=== PATIENT | male | born 1970 | race Caucasian/White ===

== ENCOUNTER 2021-04-27 16:04 | Emergency (ER) | payer OTHER, SELFPAY ==
--- NOTE | ~2021-04-27 | CT_ITS ---
EXAMINATION: CT SOFT TISSUE NECK WITHOUT CONTRAST CLINICAL INFORMATION: Facial swelling and trismus. COMPARISON: None TECHNIQUE: Helical imaging was performed in the axial plane with generation of coronal and sagittal reformatted images. No intravenous contrast given. This CT examination was performed using dose optimization techniques as appropriate, variously including the following: *Automated exposure control *Adjustment of mA and/or kV according to patient size (this includes techniques or standardized protocols for targeted exams where dose is matched to indication/reason for exam; i.e. extremities or head) *Use of iterative reconstruction technique DLP: 717 mGy-cm FINDINGS: Parotid glands, submandibular glands, and thyroid gland are normal. The nasopharynx, oral cavity, tongue base, and tonsillar pillars are grossly normal on this noncontrast examination. The parapharyngeal fat planes are preserved. The hypopharynx, epiglottis, and preepiglottic space are unremarkable. There appear to be minimal secretions within the right piriform sinus. Laryngeal structures normal. No fluid collections in the deep soft tissues. Normal sized lymph nodes of the suprahyoid and infrahyoid neck without evidence of lymphadenopathy by size criteria. Incidentally noted are a right posterior facial vein and external jugular vein that are asymmetrically larger than the the left-sided veins. There is soft tissue edema superficial and deep to the right platysma muscle without focal superficial fluid collection or soft tissue gas. Skull base is intact and the mastoid air cells and middle ear cavities are clear. The visualized intracranial structures are unremarkable. No extra-axial fluid collection. Mucosal thickening of frontal, ethmoid and maxillary sinuses without air-fluid levels. 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 The orbital herrera, globes and retrobulbar soft tissues are unremarkable. No evidence of facial bone injury. The mandible and temporomandibular joints are normal. There appear to be bilateral dental caries of maxillary premolar teeth with a focal periapical lucency of a root of a right first premolar tooth. There is focal loss of the buccal cortex in this area. However, no overlying soft tissue abscess in this area. No acute findings in the cervical spine. Cervical vertebra have normal height and alignment. The disc spaces are maintained. No prevertebral soft tissue swelling. Mild centrilobular emphysema and bronchial wall thickening of the visualized upper lobes. There are symmetric reticular opacities of scarring at lung apices. CT/CT soft tissue neck wo con IMPRESSION: * The soft tissue edema observed superficial and deep to the right platysma muscle could be a manifestation of cellulitis, if in the right clinical context. No evidence of abscess or soft tissue gas. * No lymphadenopathy or masses are detected within the neck on this noncontrast examination. * There are maxillary dental caries, and there is a periapical lucency around the root of a right maxillary premolar tooth. However, no evidence of a soft tissue abscess overlying the maxilla in this area.
[2021-04-27 16:37] VITALS: BP 112/61; PULSE 84; RESP 20; TEMP 36.8; O2SAT 95; BMI 23.7
--- NOTE | 2021-04-27 18:11 | ED_ITS ---
HPI - Dental/Oral General Chief complaint: Dental/Oral <SHAWNA Benton - Last Filed: 04/27/21 18:53> Stated complaint: oral infection <SHAWNA Benton Last Filed: 04/27/21 18:53> Time Seen by Provider: 04/27/21 18:11 <SHAWNA Benton Last Filed: 04/27/21 18:53> Source: patient <SHAWNA Benton Last Filed: 04/27/21 18:53> Mode of arrival: ambulatory <SHAWNA Benton Last Filed: 04/27/21 18:53> Limitations: no limitations <SHAWNA Benton Last Filed: 04/27/21 18:53> History of Present Illness HPI Narrative: This is a 50-year-old male who was sent over from [facility] in check if he with right extra oral sub mandibular facial swelling with pain and sensibility to digital palpation. At this time the patient is not able to provide a good history due to pain, and is not really talking. We are basing our history off of typed report from [facility] Dr. Cruz DDS. According to Dr. Cruz the swelling started 3 days ago. He thinks that the source of infection is tooth number 31. He also reports that the patient has very limited range of motion and significant intraoral swelling on the right side and underneath his time. Dr. Cruz is concerned due to the rapid spread of infection, and he is concerned of potential spread of infection and swelling of the floor of the mouth and compromise of the airway. He sent him to the emergency department for IV antibiotics, as he thinks oral antibiotics will not be sufficient. This patient was unable to provide a descriptive history, and Past Medical history. Upon questioning all he kept saying is he does not want a CT scan, ?it is not necessary , and he states he does not want to stay in the hospital. He also adds that he thought he would just be in and out of the hospital. He also states that he has not been able to eat or drink over the past 3 days due to pain. He is having trouble swallowing. <SHAWNA Benton Last Filed: 04/27/21 18:53> MD Complaint: tooth pain <SHAWNA Benton Last Filed: 04/27/21 18:53> Location: Tooth # (Tooth number 31 possible source of infection according to Dr. Cruz DDS [facility]) <SHAWNA Benton - Last Filed: 04/27/21 18:53> Teeth map: 1. Tooth 31. Possible source of infection according to DDS <SHAWNA Benton - Last Filed: 04/27/21 18:53> Onset (ago): day(s) (3) <SHAWNA Benton - Last Filed: 04/27/21 18:53> Duration: constant <SHAWNA Benton - Last Filed: 04/27/21 18:53> Severity: severe <SHAWNA Benton - Last Filed: 04/27/21 18:53> Severity scale (1-10): 10 <SHAWNA Benton - Last Filed: 04/27/21 18:53> Relieving factors: nothing <SHAWNA Benton - Last Filed: 04/27/21 18:53> Exacerbating factors: chewing, swallowing and other (Speaking) <SHAWNA Benton - Last Filed: 04/27/21 18:53> Context: history of dental caries and poor dental care <SHAWNA Benton - Last Filed: 04/27/21 18:53> Associated symptoms: other (Patient denies) <SHAWNA Benton - Last Filed: 04/27/21 18:53> Treatment prior to arrival: none <SHAWNA Benton - Last Filed: 04/27/21 18:53> Related Data Home medications: Previous Rx's Medication Instructions Recorded albuterol sulfate 90 mcg/actuation 1 inh INHALATION QID PRN 30 Days 05/22/20 aerosol inhaler #18 g salmeterol 50 mcg/dose blister 1 inh INHALATION Q12H 30 Days #28 03/28/21 powder for inhalation (Serevent ea Diskus) amoxicillin 875 mg-potassium 1 tab PO Q12H #20 tab 04/27/21 clavulanate 125 mg tablet (Augmentin) doxycycline hyclate 100 mg tablet 100 mg PO BID #20 tab 04/27/21 oxycodone 5 mg capsule 5 mg PO Q6H PRN #7 cap 04/27/21 <SHAWNA Benton - Last Filed: 04/27/21 18:53> Allergies/adverse reactions: Allergies Allergy/AdvReac Type Severity Reaction Status Date / Time chicken derived Allergy Severe SWELLING Unverified 04/27/20 15:31 [CHICKEN DERIVED] codeine [CODEINE] Allergy Unknown UNKNOWN Unverified 04/27/20 15:31 egg [EGG] Allergy Unknown UNKNOWN Unverified 04/27/20 15:31 Codeine Sulfate Allergy Unknown hives Uncoded 02/09/20 00:00 <SHAWNA Benton - Last Filed: 04/27/21 18:53> Review of Systems Review of Systems: Constitutional : No Fever, No Chills, No changes in PO intake, No difficulty speaking, no recent dental procedure, no heat or cold intolerance while eating, no recent face trauma, ENT/Mouth : + Dental pain, + swollen neck, + Jaw pain, + throat swelling, + swallowing difficulty, no change in voice, + facial swelling, no drooling, + trismus, no bleeding, no lacerations, + tongue swelling, +gum swelling, Eyes: No Eye Pain, No periorbital Swelling Cardiovascular : No Chest Pain, No SOB Respiratory : No Cough, No Sputum, No Wheezing, No Smoke Exposure, No Dyspnea Gastrointestinal : No Nausea, No Vomiting, No Diarrhea Genitourinary : No Dysuria Musculoskeletal : No Myalgias Skin : No rash, no facial swelling or redness, Neuro : No Weakness, No Numbness, No Headache <SHAWNA Benton - Last Filed: 04/27/21 18:53> Yes all other systems are reviewed and are negative <SHAWNA Benton - Last Filed: 04/27/21 18:53> [facility] Past Medical History Attestation statement: The following information was validated with the patient. <SHAWNA Benton - Last Filed: 04/27/21 18:53> Social History Social History: Social History Advance Directives: No Advance Directives Information Provided: No <SHAWNA Benton Last Filed: 04/27/21 18:53> Physical Exam Vital Signs: Vital Signs: Last Vital Signs Temp 98.2 F 04/27/21 16:37 Pulse 84 04/27/21 16:37 Resp 20 04/27/21 16:37 BP 112/61 04/27/21 16:37 Pulse Ox 95 04/27/21 16:37 Body Mass Index 23.7 vital signs have been reviewed as normal and appeared to be correct. Blood pressure normal. Heart rate normal. Respiration rate normal. Temperature normal. Oxygen saturation normal. <SHAWNA Benton - Last Filed: 04/27/21 18:53> Vital Signs: Last Vital Signs Temp 98.2 F 04/27/21 16:37 Pulse 84 04/27/21 16:37 Resp 20 04/27/21 16:37 BP 112/61 04/27/21 16:37 Pulse Ox 95 04/27/21 16:37 Body Mass Index 23.7 <Kia Almodovar PA-C - Last Filed: 04/27/21 21:20> Appearance: Alert. Oriented X3. No acute distress. Head: Normal external exam. Normocephalic. Atraumatic. Eyes: PERRLA. EOMI. Conjunctiva and sclera normal. Eyelids normal. ENT: EAC normal. TM's Normal. Pharynx normal. Uvula midline. Moist mucous membranes. No trismus noted. No drooling noted. No muffled voice noted. Dentition: Patient with poor dentition throughout with multiple old fractured teeth with multiple dental caries. Gingival within normal limits. + swelling and hit the right side of the face, worse and in a submandibular region. + trismus,+ swelling to the tongue + swelling to the right side of the gums, + trouble swallowing and speaking, + induration to roof of the mouth, predominantly on the right-hand side, + erythema/calor noted to the right side of face, submandibular region and mentum. + swollen tounge. Unable to rule out peritonsillar abscess, retropharyngeal abscess. Neck: Normal inspection. Neck supple. FROM. No adenopathy. Thyroid Normal. No meningeal signs. No neck mass noted. Trachea midline. CVS: Normal heart rate and rhythm. Heart sound normal. No murmurs noted. Pulses normal throughout. Respiratory: No respiratory distress. Painless inspiration. Breath sounds normal. No wheezes/rales/rhonchi noted. Chest nontender. No accessory muscle usage noted or decreased air movement noted. Back: Full range of motion noted. Skin: Skin warm and dry. Normal skin color. Normal skin turgor. No rashes/lesions/lacerations noted. Extremities:Extremities exhibit normal range of motion. Extremities nontender. Neuro: Oriented X 3. No motor deficit. No sensory deficit. Reflexes normal. <SHAWNA Benton - Last Filed: 04/27/21 18:53> Course Course Course Narrative: 1830 This is a 50-year-old male who was sent to the emergency department from [facility] and check a P by Dr. Cruz DDS for right extra oral sub mandib ular facial swelling with pain and sensibility to digital palpation. Patient was unable to provide history, so the history was obtained from a history written by Dr. Cruz. He states that the swelling started 3 days ago and has been progressively worsening. Dr. Cruz believes that the source of the infection could be tooth number 31. He was sent and for IV antibiotics, Dr. villa and this did not believe that p.o. antibiotics would be sufficient to treat this infection. The patient was not cooperative during history taking process. He repetitively said that he did not want a CT scan and stated that he did not think he needed one, he also states that he does not want to be in [facility] and did not know that this was going to be a long process . I explained to the patient at this time it is important to obtain labs including a CBC, CMP, lactate, blood cultures and to obtain a CT of soft tissues to rule out peritonsillar abscess retropharyngeal abscess. He continued to insist that he did not think that this was necessary. Upon physical examination there is evident erythema, and calor noted to the right side of the face, worse in the submandibular region. There is also noted induration to the right submandibular area and supra mandibular area. Induration is also noted on the roof of the mouth particularly on the right side. Patient had difficulty speaking and swallowing throughout the physical examination due to pain and inflammation. Trismus is also noted upon inspection. Patient exhibits evident pain to palpation over the right side of his face, his right upper and lower gums and teeth. And his tongue is noted to be swollen. The plan at this time is to obtain labs, and CT of neck soft tissues if patient is compliant. Patient has been educated on the importance of performing these laboratory studies as well as this imaging study to prevent life-threatening complications. We have also told him that due to the rapid extent of the swelling it is possible for his airway to become compromised and for this reason the studies must be done. <SHAWNA Benton - Last Filed: 04/27/21 18:53> Reevaluation(s) Reevaluation #1: - Sign out to QUIN Olvera pending labs, blood cultures, lactic acid and CT scan of soft tissue neck to evaluate for possible abscess or any other acute processes <SHAWNA Benton Last Filed: 04/27/21 18:53> Time: 18:52 <SHAWNA Benton Last Filed: 04/27/21 18:53> Reevaluation #2: CT scan showed cellulitis, superficial, right neck. Will give patient 2nd dose of oxycodone as his mother is driving him. Sent prescriptions and 7 more oxycodone for pain to his pharmacy. <Kia Almodovar PA-C - Last Filed: 04/27/21 21:20> Time: 21:19 <Kia Almodovar PA-C - Last Filed: 04/27/21 21:20> MDM - Dental/Oral Lab Data Result diagrams: : 04/27/21 18:52 04/27/21 18:50 <SHAWNA Benton Last Filed: 04/27/21 18:53> Labs: Lab Results 04/27/21 04/27/21 04/27/21 Range/Units 18:50 18:50 18:50 WBC (4.8-10.8) X10*3/uL RBC (4.60-5.80) X10*6/uL Hgb (14.0-18.0) g/dl Hct (42-52) % MCV (80-98) fL MCH (27.0-33.0) pg MCHC (31.0-36.0) g/dl RDW (11.0-16.0) % Plt Count (160-400) X10*3/uL MPV (9.4-12.4) fL Immature Gran % (Auto) (0.0-0.4) % Neut % (Auto) (45-73) % Lymph % (Auto) (20-40) % Morrow % (Auto) (2-11) % Eos % (Auto) (0-4) % Baso % (Auto) (0-2) % Lymph # (Auto) (1.2-4.9) X10*3/uL Morrow # (Auto) (0.1-1.2) X10*3/uL Eos # (Auto) (0.0-0.4) X10*3/uL Baso # (Auto) (0.0-0.2) X10*3/uL Abs Immat Gran (auto) (0.00-0.03) X10*3/uL Absolute Neuts (auto) (2.0-8.3) X10*3/uL Absolute Nucleated RBC (0.0-0.012) X10*3/uL Nucleated RBC % (auto) (0.0-0.2) /100WBC Smear Tech's Comments PT 11.0 (9.9-13.0) SEC INR 1.0 (0.9-1.1) Sodium 137 (135-145) mmol/L Potassium 3.8 (3.3-5.1) mmol/L Chloride 104 (96-108) mmol/L Carbon Dioxide 25 (22-29) mmol/L Anion Gap 12 (12-20) BUN 4 L (9-16) mg/dL Creatinine 0.91 (0.5-1.4) mg/dL Estim Creat Clear Calc 107.3 Estimated GFR > 60 Random Glucose 122 H (60-115) mg/dL Lactic Acid 1.6 (0.5-2.0) mmol/L Calcium 8.6 (8.4-10.2) mg/dL Magnesium 1.9 (1.6-2.6) mg/dL Total Bilirubin 2.9 H (0.0-1.0) mg/dL AST 90 H (5-37) U/L ALT 92 H (0-40) U/L Alkaline Phosphatase 260 H (39-117) U/L Total Protein 5.4 L (6.5-8.0) g/dL Albumin 3.1 L (3.5-5.0) g/dL COVID-19 (JESSICA) (Negative) COVID-19 Clin Com 04/27/21 04/27/21 Range/Units 18:52 20:31 WBC 12.4 H (4.8-10.8) X10*3/uL RBC 3.87 L (4.60-5.80) X10*6/uL Hgb 12.8 L (14.0-18.0) g/dl Hct 37.2 L (42-52) % MCV 96.1 (80-98) fL MCH 33.1 H (27.0-33.0) pg MCHC 34.4 (31.0-36.0) g/dl RDW 13.7 (11.0-16.0) % Plt Count 189 (160-400) X10*3/uL MPV 10.0 (9.4-12.4) fL Immature Gran % (Auto) 0.3 (0.0-0.4) % Neut % (Auto) 91.8 H (45-73) % Lymph % (Auto) 3.0 L (20-40) % Morrow % (Auto) 4.0 (2-11) % Eos % (Auto) 0.7 (0-4) % Baso % (Auto) 0.2 (0-2) % Lymph # (Auto) 0.4 L (1.2-4.9) X10*3/uL Morrow # (Auto) 0.5 (0.1-1.2) X10*3/uL Eos # (Auto) 0.1 (0.0-0.4) X10*3/uL Baso # (Auto) 0.0 (0.0-0.2) X10*3/uL Abs Immat Gran (auto) 0.04 H (0.00-0.03) X10*3/uL Absolute Neuts (auto) 11.4 H (2.0-8.3) X10*3/uL Absolute Nucleated RBC 0.000 (0.0-0.012) X10*3/uL Nucleated RBC % (auto) 0.0 (0.0-0.2) /100WBC Smear Tech's Comments VERIFIED PT (9.9-13.0) SEC INR (0.9-1.1) Sodium (135-145) mmol/L Potassium (3.3-5.1) mmol/L Chloride (96-108) mmol/L Carbon Dioxide (22-29) mmol/L Anion Gap (12-20) BUN (9-16) mg/dL Creatinine (0.5-1.4) mg/dL Estim Creat Clear Calc Estimated GFR Random Glucose (60-115) mg/dL Lactic Acid (0.5-2.0) mmol/L Calcium (8.4-10.2) mg/dL Magnesium (1.6-2.6) mg/dL Total Bilirubin (0.0-1.0) mg/dL AST (5-37) U/L ALT (0-40) U/L Alkaline Phosphatase (39-117) U/L Total Protein (6.5-8.0) g/dL Albumin (3.5-5.0) g/dL COVID-19 (JESSICA) Negative (Negative) COVID-19 Clin Com See Note <SHAWNA Benton - Last Filed: 04/27/21 18:53> Lab Results 04/27/21 04/27/21 04/27/21 Range/Units 18:50 18:50 18:50 WBC (4.8-10.8) X10*3/uL RBC (4.60-5.80) X10*6/uL Hgb (14.0-18.0) g/dl Hct (42-52) % MCV (80-98) fL MCH (27.0-33.0) pg MCHC (31.0-36.0) g/dl RDW (11.0-16.0) % Plt Count (160-400) X10*3/uL MPV (9.4-12.4) fL Immature Gran % (Auto) (0.0-0.4) % Neut % (Auto) (45-73) % Lymph % (Auto) (20-40) % Morrow % (Auto) (2-11) % Eos % (Auto) (0-4) % Baso % (Auto) (0-2) % Lymph # (Auto) (1.2-4.9) X10*3/uL Morrow # (Auto) (0.1-1.2) X10*3/uL Eos # (Auto) (0.0-0.4) X10*3/uL Baso # (Auto) (0.0-0.2) X10*3/uL Abs Immat Gran (auto) (0.00-0.03) X10*3/uL Absolute Neuts (auto) (2.0-8.3) X10*3/uL Absolute Nucleated RBC (0.0-0.012) X10*3/uL Nucleated RBC % (auto) (0.0-0.2) /100WBC Smear Tech's Comments PT 11.0 (9.9-13.0) SEC INR 1.0 (0.9-1.1) Sodium 137 (135-145) mmol/L Potassium 3.8 (3.3-5.1) mmol/L Chloride 104 (96-108) mmol/L Carbon Dioxide 25 (22-29) mmol/L Anion Gap 12 (12-20) BUN 4 L (9-16) mg/dL Creatinine 0.91 (0.5-1.4) mg/dL Estim Creat Clear Calc 107.3 Estimated GFR > 60 Random Glucose 122 H (60-115) mg/dL Lactic Acid 1.6 (0.5-2.0) mmol/L Calcium 8.6 (8.4-10.2) mg/dL Magnesium 1.9 (1.6-2.6) mg/dL Total Bilirubin 2.9 H (0.0-1.0) mg/dL AST 90 H (5-37) U/L ALT 92 H (0-40) U/L Alkaline Phosphatase 260 H (39-117) U/L Total Protein 5.4 L (6.5-8.0) g/dL Albumin 3.1 L (3.5-5.0) g/dL COVID-19 (JESSICA) (Negative) COVID-19 Clin Com 04/27/21 04/27/21 Range/Units 18:52 20:31 WBC 12.4 H (4.8-10.8) X10*3/uL RBC 3.87 L (4.60-5.80) X10*6/uL Hgb 12.8 L (14.0-18.0) g/dl Hct 37.2 L (42-52) % MCV 96.1 (80-98) fL MCH 33.1 H (27.0-33.0) pg MCHC 34.4 (31.0-36.0) g/dl RDW 13.7 (11.0-16.0) % Plt Count 189 (160-400) X10*3/uL MPV 10.0 (9.4-12.4) fL Immature Gran % (Auto) 0.3 (0.0-0.4) % Neut % (Auto) 91.8 H (45-73) % Lymph % (Auto) 3.0 L (20-40) % Morrow % (Auto) 4.0 (2-11) % Eos % (Auto) 0.7 (0-4) % Baso % (Auto) 0.2 (0-2) % Lymph # (Auto) 0.4 L (1.2-4.9) X10*3/uL Morrow # (Auto) 0.5 (0.1-1.2) X10*3/uL Eos # (Auto) 0.1 (0.0-0.4) X10*3/uL Baso # (Auto) 0.0 (0.0-0.2) X10*3/uL Abs Immat Gran (auto) 0.04 H (0.00-0.03) X10*3/uL Absolute Neuts (auto) 11.4 H (2.0-8.3) X10*3/uL Absolute Nucleated RBC 0.000 (0.0-0.012) X10*3/uL Nucleated RBC % (auto) 0.0 (0.0-0.2) /100WBC Smear Tech's Comments VERIFIED PT (9.9-13.0) SEC INR (0.9-1.1) Sodium (135-145) mmol/L Potassium (3.3-5.1) mmol/L Chloride (96-108) mmol/L Carbon Dioxide (22-29) mmol/L Anion Gap (12-20) BUN (9-16) mg/dL Creatinine (0.5-1.4) mg/dL Estim Creat Clear Calc Estimated GFR Random Glucose (60-115) mg/dL Lactic Acid (0.5-2.0) mmol/L Calcium (8.4-10.2) mg/dL Magnesium (1.6-2.6) mg/dL Total Bilirubin (0.0-1.0) mg/dL AST (5-37) U/L ALT (0-40) U/L Alkaline Phosphatase (39-117) U/L Total Protein (6.5-8.0) g/dL Albumin (3.5-5.0) g/dL COVID-19 (JESSICA) Negative (Negative) COVID-19 Clin Com See Note <Kia Almodovar PA-C - Last Filed: 04/27/21 21:20> Imaging Data soft tissue neck: Attestation: I personally reviewed and interpreted this imaging study as follows: <Kia Almodovar PA-C - Last Filed: 04/27/21 21:20> Radiologist's impression: [place] [id number] CT Scan Report Signed Patient: Edy Odell MR#: [id number] : 1970 Acct:[id number] Age/Sex: 50 / M ADM Date: 04/27/21 Loc: HO.ED Attending Dr: Ordering Physician: Tiana Hutton Date of Service: 04/27/21 Procedure(s): CT soft tissue neck wo con Accession Number(s): [id number] cc: Tiana Hutton~ EXAMINATION: CT SOFT TISSUE NECK WITHOUT CONTRAST CLINICAL INFORMATION: Facial swelling and trismus.? COMPARISON: None? TECHNIQUE: Helical imaging was performed in the axial plane with generation of coronal and sagittal reformatted images. No intravenous contrast given. This CT examination was performed using dose optimization techniques as appropriate, variously including the following: *Automated exposure control *Adjustment of mA and/or kV according to patient size (this includes techniques or standardized protocols for targeted exams where dose is matched to indication/reason for exam; i.e. extremities or head) *Use of iterative reconstruction technique DLP: 717 mGy-cm FINDINGS: Parotid glands, submandibular glands, and thyroid gland are normal. The nasopharynx, oral cavity, tongue base, and tonsillar pillars are grossly normal on this noncontrast examination. The parapharyngeal fat planes are preserved.? The hypopharynx, epiglottis, and preepiglottic space are unremarkable. There appear to be minimal secretions within the right piriform sinus. Laryngeal structures normal. No fluid collections in the deep soft tissues. Normal sized lymph nodes of the suprahyoid and infrahyoid neck without evidence of lymphadenopathy by size criteria. Incidentally noted are a right posterior facial vein and external jugular vein that are asymmetrically larger than the the left-sided veins. There is soft tissue edema superficial and deep to the right platysma muscle without focal superficial fluid collection or soft tissue gas. Skull base is intact and the mastoid air cells and middle ear cavities are clear. The visualized intracranial structures are unremarkable. No extra-axial fluid collection. Mucosal thickening of frontal, ethmoid and maxillary sinuses without air-fluid levels. 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 The orbital herrera, globes and retrobulbar soft tissues are unremarkable. No evidence of facial bone injury. The mandible and temporomandibular joints are normal. There appear to be bilateral dental caries of maxillary premolar teeth with a focal periapical lucency of a root of a right first premolar tooth. There is focal loss of the buccal cortex in this area. However, no overlying soft tissue abscess in this area. No acute findings in the cervical spine. Cervical vertebra have normal height and alignment. The disc spaces are maintained. No prevertebral soft tissue swelling. Mild centrilobular emphysema and bronchial wall thickening of the visualized upper lobes. There are symmetric reticular opacities of scarring at lung apices. CT/CT soft tissue neck wo con IMPRESSION: *? The soft tissue edema observed superficial and deep to the right platysma muscle could be a manifestation of cellulitis, if in the right clinical context. No evidence of abscess or soft tissue gas. *? No lymphadenopathy or masses are detected within the neck on this noncontrast examination. *? There are maxillary dental caries, and there is a periapical lucency around the root of a right maxillary premolar tooth. However, no evidence of a soft tissue abscess overlying the maxilla in this area.? Dictated By: NOÉ IRIZARRY MD Signed By: <Electronically signed by NOÉ IRIZARRY MD in OV> 04/27/211942 DD/ 28 TD/TT:? Electric Scoop Operator: <Kia Almodovar PA-C - Last Filed: 04/27/21 21:20> Critical Care Time Critical Care Time Critical Care Time: Yes <SHAWNA Benton Last Filed: 04/27/21 18:53> Total Critical Care Time: 60 <SHAWNA Benton Last Filed: 04/27/21 18:53> Attestation: I personally attest to this time spent taking care of the patient <SHAWNA Benton - Last Filed: 04/27/21 18:53> Discharge Plan Discharge Clinical Impression: Toothache Cellulitis Qualifiers: Site of cellulitis: neck Qualified Code(s): L03.221 - Cellulitis of neck <SHAWNA Benton Last Filed: 04/27/21 18:53> Patient Disposition: Home, Self-Care <SHAWNA Benton Last Filed: 04/27/21 18:53> Instructions: Cellulitis (ED) <SHAWNA Benton Last Filed: 04/27/21 18:53> Additional Instructions: Advised patient I am prescribing to antibiotics to be taken in full. If symptoms worsen or develops fever, please return to the emergency department. Please check in with your primary care doctor next week so they can evaluate the cellulitis and make sure it is not moving to any other areas. <SHAWNA Benton Last Filed: 04/27/21 18:53> Prescriptions: New doxycycline hyclate 100 mg tablet 100 mg PO BID Qty: 20 RF: 0 amoxicillin-pot clavulanate [Augmentin] 875-125 mg tablet 1 tab PO Q12H Qty: 20 RF: 0 oxycodone 5 mg capsule 5 mg PO Q6H PRN (Reason: pain) Qty: 7 RF: 0 No Action albuterol sulfate 90 mcg/actuation HFA aerosol inhaler 1 inh inhalation QID PRN (Reason: shortness of breath or wheezing) 30 Days Qty: 18 RF: 3 Serevent Diskus 50 mcg/dose blister with device 1 inh inhalation Q12H 30 Days Qty: 28 RF: 1 <SHAWNA Benton Last Filed: 04/27/21 18:53>
[2021-04-27 19:06] LABS: Basophils Percent Auto 0.2 % (0-2); Eosinophils Absolute Auto 0.1 X10*3/uL (0.0-0.4); Eosinophils Percent Auto 0.7 % (0-4); Hematocrit 37.2 % (42-52); Hemoglobin 12.8 g/dl (14.0-18.0); Imm Gran Abs Auto 0.04 X10*3/uL (0.00-0.03); Imm Gran Pct Auto 0.3 % (0.0-0.4); Lymphocytes Absolute Auto 0.4 X10*3/uL (1.2-4.9); MANUAL DIFF FLAG SCAN; Mean Corpuscular HGB Conc 34.4 g/dl (31.0-36.0); Mean Corpuscular Hemoglobin 33.1 pg (27.0-33.0); Mean Corpuscular Volume 96.1 fL (80-98); Monocytes Absolute Auto 0.5 X10*3/uL (0.1-1.2); Neutrophils Absolute Auto 11.4 X10*3/uL (2.0-8.3); Neutrophils Percent Auto 91.8 % (45-73); Platelet Count 189 X10*3/uL (160-400); Red Blood Count 3.87 X10*6/uL (4.60-5.80); Red Cell Distribution Width 13.7 % (11.0-16.0); SCAN SMEAR FLAG 1; White Blood Count 12.4 X10*3/uL (4.8-10.8)
[2021-04-27 19:10] LABS: Lactic Acid 1.6 mmol/L (0.5-2.0)
[2021-04-27 19:27] LABS: SLIDE REVIEW VERIFIED
[2021-04-27] MEDS: oxyCODONE HCl Immed Release 5 MG TABLET PO ×2 (19:27→21:31)
[2021-04-27] MEDS: cefTRIAXone sodium 1 GM in 0.9 % Sodium Chloride 50 ML IV (19:28)
[2021-04-27 19:30] LABS: Alanine Aminotransferase 92 U/L (0-40); Albumin Level 3.1 g/dL (3.5-5.0); Alkaline Phosphatase 260 U/L (39-117); Anion Gap 12 (12-20); Aspartate Amino Transferase 90 U/L (5-37); Bilirubin Total 2.9 mg/dL (0.0-1.0); Blood Urea Nitrogen 4 mg/dL (9-16); Calcium 8.6 mg/dL (8.4-10.2); Carbon Dioxide 25 mmol/L (22-29); Chloride 104 mmol/L (96-108); Creatinine Clr Calc Pharmacy 107.3; Estimated Glomerular Filt Rate > 60; Glucose Random 122 mg/dL (60-115); Magnesium 1.9 mg/dL (1.6-2.6); Potassium 3.8 mmol/L (3.3-5.1); Sodium 137 mmol/L (135-145); Total Protein 5.4 g/dL (6.5-8.0)
[2021-04-27] MEDS: 0.9 % Sodium Chloride 1,000 ML 999 ML IVCONT (19:31)
--- NOTE | 2021-04-27 19:43 | PHA.MEDREC ---
Pharmacy Consult ? Medication Reconciliation Pharmacy has completed the medication reconciliation. Yeni GentileD
[2021-04-27 20:53] LABS: COVID-19 Test Negative (Negative); IDNOW Serial# 08D9AD1C
== END 2021-04-27 21:22 | disposition home or self-care (01) ==
PROVIDERS: Physician Assistant Medical; Emergency Provider Emergency Medicine
DX: L03.221 Cellulitis of neck (principal); Z20.822 Contact with and (suspected) exposure to COVID-19; Z79.899 Other long term (current) drug therapy
CPT/HCPCS: 36415; 70490; 80053; 83605; 83735; 85025; 85610; 87040; 87635; 96361; 96374; 96375; 99284; 99291; J0696

== ENCOUNTER 2025-02-16 13:04 | Outpatient (AMB) | payer OTHER, SELFPAY ==
--- NOTE | 2025-02-16 13:20 | AM.OFFWIN_ITS ---
Intake Vital Signs 02/16/25 13:21 Height 6 ft 1 in Weight 161 lb BMI 21.2 BP 132/74 Blood Pressure Location Lt brachial Position Sitting Pulse 95 Pulse Source Pulse Oximeter Temp 98.3 F Temp Source Oral Pulse Oximetry (%) 94 Oxygen Delivery Method Room Air Intake Visit Reasons: EP wheezing, SOB Intake Note: present with wheezing and SOB for about a week, reports h/o asthma Allergies chicken derived (CHICKEN DERIVED) Allergy (Severe, Verified 02/16/25 13:23) SWELLING codeine (CODEINE) Allergy (Unknown, Verified 02/16/25 13:23) UNKNOWN egg (EGG) Allergy (Unknown, Verified 02/16/25 13:23) UNKNOWN Codeine Sulfate Allergy (Unknown, Uncoded 02/09/20 00:00) hives Medication List - Last Reconciled 02/16/25 by Brenda Goldstein PA-C albuterol sulfate 90 mcg/actuation 1 inh inhalation QID PRN 30 days Do you need a note to return to daycare/school/sports/work: No HPI HPI Comments History of Present Illness Details History - The patient is a 54-year-old male pres enting with asthma and medication refills. - The patient reports a history of asthm a, which is currently exacerbated due to lack of regular medication and the warm weather. - Symptoms include shortness of breath a nd wheezing, with no associated chest pain or significant cough. - The patient has been using albuterol w ith limited doses remaining and reports improvement with prednisone. - The patient had 2 10 mg tablets at [facility] and he took them today. - The patient has a history of using Adv air but did not prefer it, and wants Breo as recommended by a family member. - He wants medications until he can see his new PCP, which is in 2 weeks. He is unsure where he is going for an appointment. - No history of smoking or COPD, and no other respiratory symptoms such as fever, chills, or sore throat. Physical Exam General: Cooperative, healthy appearing, comfortable and no acute distress Orientation/consciousness: Patient oriented x3 Ears: Hearing grossly normal bilaterally, external ears normal and TM's normal bilaterally Nose: Normal external nose present, normal nares present, and no nasal discharge present. Face and sinus: Sinuses nontender to palpation. Mouth: Normal oral and palatal mucosa present and moist mucous membranes noted. Throat: Tonsils normal. Uvula is midline. Posterior oropharynx with erythema and no exudates. Neck: Normal visual inspection, full ROM. No lymphadenopathy noted. Respiratory: Normal respiratory effort, able to speak in complete sentences. No respiratory distress, not tachypneic, no tripod positioning and no use of accessory muscles. Insp/exp wheezes noted in all lung higgins. Cardiovascular: Regular rate and rhythm. Normal S1 and S2. No m/r/g noted Skin: No rashes or lesions noted Patient was informed and verbally consented to the use of an ambient scribe for clinic note documentation during this visit Review of Systems Const All systems reviewed & are unremarkable except as noted in HPI and below Physical Exam Vital Signs: Last Vital Signs Temp 98.3 F 02/16/25 13:21 Pulse 95 02/16/25 13:21 BP 132/74 02/16/25 13:21 Pulse Ox 94 02/16/25 13:21 Oxygen Delivery Method Room Air 02/16/25 13:21 BMI result Body Mass Index 21.2 Office Procedures Nebulizer Treatment Nebulizer Treatment 47444-Hqilzixxo/MDI RX initial, or Nebulizer Subsequent Treatment Office Meds ipratropium 0.5 mg-albuterol 3 mg (2.5 mg base)/3 mL nebulization soln Performing Provider: Brenda Goldstein PA-C Performing Location: [facility] [place] [facility] Administered by: Brenda Goldstein PA-C on 02/16/25 14:06 Dose Route Admin Location Dispensed Lot Number Expiration Date NDC Property Appraiser 3 mL inhalation 3 mL [id number] 10/08/25 37987-312-03 [facility] Assessment & Plan Assessment & Plan (1) Asthma exacerbation: Code(s): J45.901 - Unspecified asthma with (acute) exacerbation Qualifiers: Asthma severity: mild Asthma persistence: persistent Qualified Code(s): J45.31 - Mild persistent asthma with (acute) exacerbation Plan Most likely asthma exacerbation vs uncontrolled asthma Plan - Administered nebulizer treatment in the office today to alleviate chest tightness and wheezing. - Prescribed medications to manage asthma symptoms until the primary care appointment. - Prednisone burst for 5 days - will add cetirizine daily - needs f/u with his PCP, likely will need PFTs and pulmonary referral Orders: Orders AMB Nebulizer Treatment Today J45.901 - Unspecified asthma with (acute) exa cerbation Medications: New prednisone 50 mg PO QAM 5 tabs 0RF albuterol sulfate 90 mcg/actuation 2 puffs inhalation Q6H PRN 8.5 grams 0RF shortness of breath or wheezing or cough cetirizine 10 mg PO DAILY PRN 30 tabs 0RF allergy symptoms Discontinued amoxicillin-pot clavulanate 875-125 mg (Augmentin) Discontinued Reason: Patient Completed Course 1 tab PO Q12H 20 tabs 0RF doxycycline hyclate Discontinued Reason: Patient Completed Course 100 mg PO BID 20 tabs 0RF oxycodone Discontinued Reason: Patient Completed Course 5 mg PO Q6H PRN 7 caps 0RF pain salmeterol (Serevent Diskus) Discontinued Reason: Patient Completed Course 1 inh inhalation Q12H 30 days 28 ea 1RF Coding Level of Care Code Est Pt Level 4 (81729) Diagnoses Mild persistent asthma with exacerbation J45.31 Asthma severity: mild Asthma persistence: persistent CPT Codes Nebulizer Treatment - Nebulizer Treatment, initial or subsequent: 58481- Nebulizer/MDI RX initial, or Nebulizer Subsequent Treatment ([id number])
[2025-02-16 13:21] VITALS: BP 132/74; PULSE 95; TEMP 36.8; O2SAT 94; BMI 21.2
== END 2025-02-16 14:34 | disposition home or self-care (01) ==
PROVIDERS: Visit Provider Physician Assistant Medical
DX: J45.901 Unspecified asthma with (acute) exacerbation (principal); J45.31 Mild persistent asthma with (acute) exacerbation

== ENCOUNTER → 2025-02-16 13:04 | Outpatient (BNVA) | payer OTHER, SELFPAY | PROVIDERS: Visit Provider Physician Assistant Medical | DX: J45.31 Mild persistent asthma with (acute) exacerbation (principal) | CPT/HCPCS: 94640; 99212 ==